=== PATIENT | female | born 1950 | race Caucasian/White ===

== ENCOUNTER 2022-03-07 09:17 | Emergency (ER) | payer MEDICARE ==
[~2022-03-07] VITALS: Ht 157.5 cm; Wt 68.0 kg
[~2022-03-07 09:17] MED LIST: ALENDRONATE SOD70 MG PO; ATORVASTATIN CA40 MG PO; DOXYCYCLINE HY100 MG PO; LEVOTHYROXINE88 MCG PO; METOPROLOL SUCC50 MG PO
--- OUTSIDE RECORDS SUMMARY | 2022-03-07 09:18 | XMS ---
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 Francisco has no Care Guidelines for this patient. Christine VISIT COUNT (12 MO.) 2 [facility] [place] [facility]. TOTAL 2 NOTE: Visits indicate total known visits. ED/C VISIT TRACKING (12 MO.) 03/07/2022 09:[address] [facility] [place] TYPE: Emergency COMPLAINT: - R LEG WOUND CARE 03/05/2022 16:53 [facility] [place] TYPE: Emergency COMPLAINT: - R LEG LACERATION INPATIENT VISIT TRACKING (12 MO.) No inpatient visits to display in this time frame [email or web address]
[2022-03-07] MEDS ORDERED: HYDROCODON-ACE1 EA10 PO (11:34)
== END 2022-03-07 11:54 | disposition home or self-care (01) ==
LOC: ED 09:17
DX: S81.811D Laceration without foreign body, right lower leg, subsequent encounter (principal); I10 Essential (primary) hypertension; Z88.0 Allergy status to penicillin; Z88.2 Allergy status to sulfonamides; Z79.899 Other long term (current) drug therapy
CPT/HCPCS: 73590; 99283-25

== ENCOUNTER 2022-03-08 09:11 | Emergency (ER) | payer MEDICARE ==
[~2022-03-08] VITALS: Ht 157.5 cm; Wt 65.8 kg
[~2022-03-08 09:11] MED LIST changes: +HYDROCODON-ACE1 EA10 PO
--- OUTSIDE RECORDS SUMMARY | 2022-03-08 09:14 | XMS ---
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 Francisco has no Care Guidelines for this patient. Christine VISIT COUNT (12 MO.) [address] [facility] TOTAL 3 NOTE: Visits indicate total known visits. ED/C VISIT TRACKING (12 MO.) 03/08/2022 09:[address] 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
== END 2022-03-08 10:16 | disposition home or self-care (01) ==
LOC: ED 09:11
DX: S81.811D Laceration without foreign body, right lower leg, subsequent encounter (principal); Z88.0 Allergy status to penicillin; Z88.2 Allergy status to sulfonamides; Z79.899 Other long term (current) drug therapy
CPT/HCPCS: 99282

== ENCOUNTER 2022-03-18 10:06 | Emergency (ER) | payer MEDICARE ==
[~2022-03-18] VITALS: Ht 157.5 cm; Wt 65.8 kg
--- OUTSIDE RECORDS SUMMARY | 2022-03-18 10:12 | XMS ---
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 Francisco has no Care Guidelines for this patient. Christine VISIT COUNT (12 MO.) [address] [facility] TOTAL 5 NOTE: Visits indicate total known visits. ED/C VISIT TRACKING (12 MO.) 03/18/2022 10:[address] 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 - Essential (primary) hypertension - Laceration without foreign body, right lower leg, subsequent encounter - Allergy status to sulfonamides - Allergy status to penicillin 03/05/2022 16:53 [facility] [place] TYPE: Emergency COMPLAINT: - R LEG LACERATION DIAGNOSES: - Allergy status to penicillin - Other prison (current) drug therapy - Encounter for immunization - Contact with other sharp object(s), not elsewhere classified, initial encounter - Laceration without foreign body, right lower leg, initial encounter - Essential (primary) hypertension - Allergy status to sulfonamides INPATIENT VISIT TRACKING (12 MO.) No inpatient visits to display in this time frame [email or web address]
[2022-03-18] MEDS ORDERED: DOXYCYCLINE HY100 MG PO (11:42)
[2022-03-18] MEDS ORDERED: HYDROCODON-ACE1 EA10 PO (11:42)
== END 2022-03-18 11:59 | disposition home or self-care (01) ==
LOC: ED 10:06
DX: S81.811D Laceration without foreign body, right lower leg, subsequent encounter (principal); L08.9 Local infection of the skin and subcutaneous tissue, unspecified; Z88.0 Allergy status to penicillin; Z88.2 Allergy status to sulfonamides; Z79.899 Other long term (current) drug therapy
CPT/HCPCS: 99283

== ENCOUNTER 2024-09-04 06:57 | Emergency (ER) | payer MEDICARE ==
[~2024-09-04] VITALS: Ht 157.5 cm; Wt 66.7 kg
[2024-09-04] MEDS ORDERED: HYDROCODON-ACE1 EA10 PO (09:29)
[2024-09-04 09:46] VITALS: BP 137/84
[2024-09-09] MEDS ORDERED: LOSARTAN-HCTZ1 EACH PO ×2 (08:55)
[2024-09-10] MEDS ORDERED: HYDROCODON-ACE1 EA11 PO ×2 (08:58)
== END 2024-09-04 09:47 | disposition home or self-care (01) ==
LOC: ED 06:57
DX: S52.691A Other fracture of lower end of right ulna, initial encounter for closed fracture (principal); S62.344A Nondisplaced fracture of base of fourth metacarpal bone, right hand, initial encounter for closed fracture; Z88.0 Allergy status to penicillin; Z88.2 Allergy status to sulfonamides; Z79.899 Other long term (current) drug therapy; Z79.890 Hormone replacement therapy; W18.30XA Fall on same level, unspecified, initial encounter
CPT/HCPCS: 29125; 73110; 99283

== ENCOUNTER 2024-09-10 06:25 | Day surgery (SDC) | payer MEDICARE ==
[~2024-09-10] VITALS: Ht 157.5 cm; Wt 66.8 kg
[~2024-09-10 06:25] MED LIST changes: +LACTATED RINGER'S 1,000 ML IV SCH; +LOSARTAN-HCTZ1 EACH PO
[2024-09-10 06:42] VITALS: BP 140/79
[2024-09-10] MEDS ORDERED: CEFAZOLIN SODIUM 2 GM/20 ML SYR IV SCH (07:00)
[2024-09-10] MEDS ORDERED: IBLOOD GLUCOSE TEST STRIP 1 EA TEST VI PRN ×2 (07:00→08:30)
[2024-09-10] MEDS ORDERED: LIDOCAINE HCL 1% 5 ML SDV INJ ONE (07:00)
[2024-09-10] MEDS ORDERED: propofoL 200 MG/20 ML VIAL ONE (07:10)
[2024-09-10] MEDS ORDERED: LIDOCAINE HCL 2% 20 MG/ML VIAL INJ ONE (07:11)
[2024-09-10] MEDS ORDERED: DEXAMETHASONE SOD PHOS 4 MG/ML VIAL ONE ×2 (07:11→08:04)
[2024-09-10] MEDS ORDERED: Ropivacaine HCl 0.5% 30 ML VIAL ONE (07:11)
--- NOTE | 2024-09-10 07:54 | NUR ---
PT NOT AVAILABLE FOR VISIT. PROVIDED PRAYER.
[2024-09-10] MEDS ORDERED: KETOROLAC TROMETHAMINE 30 MG/ML VIAL ONE (08:04)
[2024-09-10] MEDS ORDERED: ondansetron HCL 4 MG/2 ML VIAL ONE (08:04)
[2024-09-10] MEDS ORDERED: ondansetron HCL 4 MG/2 ML VIAL IV PRN (08:30)
[2024-09-10] MEDS ORDERED: NALOXONE HCL 0.4 MG SYR IV PRN (08:30)
[2024-09-10] MEDS ORDERED: PROCHLORPERAZINE EDISYLATE 10 MG/2 ML VIAL IV PRN (08:30)
[2024-09-10] MEDS ORDERED: fentaNYL citrate 50 MCG/ML SDV IV PRN (08:30)
[2024-09-10] MEDS ORDERED: droPERidol 5 MG/2 ML VIAL IV PRN (08:30)
[2024-09-10] MEDS ORDERED: HYDROmorphone HCL 1 MG/ML SYR IV PRN (08:30)
[2024-09-10] MEDS ORDERED: ePHEDrine sulfate 50 MG/ML AMP ONE (08:40)
[2024-09-10] MEDS ORDERED: ACETAMINOPHEN 1,000 MG/100 ML VIAL ONE (08:42)
[2024-09-10] MEDS ORDERED: HYDROCODON-ACE1 EA11 PO (08:58)
[2024-09-10] MEDS ORDERED: HYDROCODONE/ACETA 7.5/325 TAB PO PRN (09:00)
--- NOTE | 2024-09-10 09:14 | NUR ---
09/10/24 0914 Giselle Leonard 0816-PT ARRIVES TO PACU RESTING SEMI FOWLERS, PT DROWSY BUT DENIES PAIN OR NAUSEA. VSS ON 6L VIA MASK, RR EVEN AND UNLABORED. 0900-PT TITRATED TO RA, VS REMAIN STABLE. PT ASKING THIS RN HOW SURGERY WENT AND RECOVERY PROCESS, ALL QUESTIONS ANSWERED.
[2024-09-10 09:29] VITALS: BP 145/73
[2024-09-10 10:26] VITALS: BP 142/70
--- NOTE | 2024-09-10 10:30 | NUR ---
At this time patient has met all discharge requirements. She had eaten/drank without nausea/vomiting, her pain is under control, she has ambulated, and she has voided. Patient expresses the desire to go home. This RN assisted patient in getting dressed. Sling is in place. Patient's was called to return back to the hospital to picker packer his . Discharge instructions were reviewed in detail with patient and she expressed understanding of all instructions. Patient was discharged via wheelchair where her is to take her home.
--- NOTE | 2024-09-10 11:04 | NUR ---
Patient up to use restroom. Patient was successful at urinating, but patient missed the hat that was placed in the toilet. Patient feels adequate in emptying her bladder
[2024-09-10] MEDS ORDERED: SEVOFLURANE 250 ML BTL INH ONE (14:17)
--- NOTE | 2024-09-10 19:04 | OR ---
[facility] [address], [place] [address] Signed DATE OF OPERATION: 09/10/2024 SURGEON: Geo Teixeira MD PREOPERATIVE DIAGNOSIS: Right distal ulna fracture, displaced. POSTOPERATIVE DIAGNOSIS: Right distal ulna fracture, displaced. PROCEDURE PERFORMED: Open reduction and internal fixation, right distal ulna. AIDS SOCIAL WORKER: None. ANESTHESIA: General. TOURNIQUET TIME: 36 minutes. IMPLANTS: A six hole 2.4 mm plate with six screws. BRIEF HISTORY: Mike is a 74-year-old female who suffered a ground level fall with a displaced angulated distal ulna fracture. This was unstable and painful to her. She wished to fix it. Risks, benefits, and alternatives of surgery were discussed with her and she elected to proceed. DESCRIPTION OF PROCEDURE: Once consent was obtained she was taken to the operating room. After adequate anesthesia, she was placed on the operating room bed with a hand table. The arm was prepped and draped in a standard sterile fashion up to a well-padded proximal arm tourniquet. The arm was exsanguinated using Esmarch bandage. Tourniquet inflated to 200 mmHg. The fracture was located using the image intensifier and a 3 inch incision was centered over this. This was done directly laterally. This was taken through skin and subcutaneous tissue. The extensor tendon was located, retracted and protected. The periosteum was incised longitudinally. The fracture was readily available and was quite Electronically Signed By: GEO TEIXEIRA MD 09/10/24 1904 PATIENT NAME: GRACIA ANGELO OPERATIVE REPORT DATE OF : 48 REPORT #: [id number] PHYSICIAN: GEO TEIXEIRA MD PCP: DANIELLE RUIZ MD REPORT IS CONFIDENTIAL AND NOT TO BE RELEASED WITHOUT AUTHORIZATION [facility] [address] [place] [id number] Signed loose. There was a lot of fluid in the fracture site with minimal debris. The fracture was distracted, cleared, reduced and cross clamped. Image intensifier showed good reduction. Initial we tried to pull a 3.5 plate on, however, this was too big. We elected to use a 2.4 set. The 2.4 LCDC plate was then fashioned to fit the lateral side of the ulna. This was then held in place with the central screw proximally. It was aligned using the image intensifier and a screw was placed distally. Middle screw was then placed across the fracture in a lag fashion. The remainder of the screw holes drilled and appropriate length screws were placed all under image intensifier. The final radiograph showed good reduction and good alignment. The wound was copiously irrigated with normal saline, closed with 3-0 Monocryl for the periosteum and 3-0 Stratafix for the skin. The wound was sealed with LiquiBand and Steri-Strips. Dressed with Allevyn sterile cast padding and a volar ulnar splint. She tolerated the procedure well. All sponge, needle, and instrument counts were correct. Geo Teixeira MD BA/MODL /[id number] Copies: ~ Electronically Signed By: GEO TEIXEIRA MD 09/10/24 1904 PATIENT NAME: GRACIA ANGELO OPERATIVE REPORT DATE OF : 48 REPORT #: [id number] PHYSICIAN: GEO TEIXEIRA MD PCP: DANIELLE RUIZ MD REPORT IS CONFIDENTIAL AND NOT TO BE RELEASED WITHOUT AUTHORIZATION
== END 2024-09-10 10:50 | disposition home or self-care (01) ==
LOC: DS 06:25
PROVIDERS: ATTEND Specialist
PROC: 0PSL04Z Reposition Left Ulna with Internal Fixation Device, Open Approach (ICD-10-PCS; principal; 2024-09-10 08:15)
DX: S52.602A Unspecified fracture of lower end of left ulna, initial encounter for closed fracture (principal); E78.00 Pure hypercholesterolemia, unspecified; E03.9 Hypothyroidism, unspecified; K21.9 Gastro-esophageal reflux disease without esophagitis; I10 Essential (primary) hypertension; Z88.0 Allergy status to penicillin; Z88.2 Allergy status to sulfonamides; W18.30XA Fall on same level, unspecified, initial encounter
CPT/HCPCS: 01830; 73110; J0131; J0690; J1100; J1885; J2405; J2704; J2795; J7121